=== PATIENT | female | born 1955 | race Hispanic/Latino ===

== ENCOUNTER 2017-06-09 07:55 | Day surgery (SDC) | payer MEDICAID ==
[2017-03-09 11:09] VITALS: BMI 39.5
[2017-06-09] MEDS: Lactated Ringer's 500 ML IV ONE (08:18)
[2017-06-09] MEDS ORDERED: Propofol 10 mg/ml Inj (20 ML) ONE (09:37)
[2017-06-09] MEDS ORDERED: Lidocaine 2% MPF (5 ml) Inj ONE (09:37)
[2017-06-09 10:02] VITALS: TEMP 97.5
[2017-06-09 10:26] VITALS: BP 133/72; PULSE 61; RESP 13; O2SAT 99
== END 2017-06-09 10:31 | disposition home or self-care (01) ==
LOC: H.ENDO 07:55
PROVIDERS: ATTEND Internal Medicine Gastroenterology
DX: K29.70 Gastritis, unspecified, without bleeding (principal); K25.3 Acute gastric ulcer without hemorrhage or perforation
CPT/HCPCS: 43239; 88305; J2704; J7120